=== PATIENT | male | born 1980 | race Caucasian/White ===

== ENCOUNTER 2024-02-11 08:44 | Inpatient (IN) ==
--- NOTE | 2024-02-11 09:04 | Emergency Department Note ---
Impression & Plan Chest pain ED Provider Note NAME: LARRY VELIZ AGE: 43 SEX: M : 1980 ARRIVES VIA: Walk-In INFORMANT: Patient, ED PROVIDER(S): Jesse Ewing DO CHIEF COMPLAINT: Chest pain HPI: The patient is a 43-year-old male who presented to the emergency department after an acute onset of chest pain. The patient noticed right sided chest pain that goes into his back. This began prior to arrival. He states the pain is moderate to severe. He does not have a history of hypertension. He has no family history of aortic dissection as far as he knows. He denies having any abdominal pain. He denies having any difficulty breathing or vomiting. He did not see his family doctor but came directly to the emergency department because of the degree of pain. He has no history of DVT or PE. He has no recent surgery or immobilization. ROS: See above HPI for pertinent positives & negatives. A total of 10 systems reviewed and were otherwise negative. PAST MEDICAL HISTORY: See Below PAST SURGICAL HISTORY: See Below FAMILY HISTORY: See Below SOCIAL HISTORY: See Below HOME MEDICATIONS: See Below ALLERGIES: See Below VITALS: See Below PHYSICAL EXAMINATION: GENERAL: The patient is awake and alert. The patient is very anxious and appears to be uncomfortable. EYES: The conjunctivae are clear. The pupils are round and reactive. EARS, NOSE, MOUTH AND THROAT: The nose is without any evidence of any deformity. NECK: The neck is nontender and supple. RESPIRATORY: Normal respiratory effort is noted there is no evidence of wheezing rhonchi or rales CARDIOVASCULAR: Regular rate and rhythm noted there no murmurs rubs or gallops normal S1 normal S2. GASTROINTESTINAL: The abdomen is soft. Abdomen is nontender. MUSCULOSKELETAL/EXTREMITIES: There is no evidence of gross deformity full range of motion is noted in the hips and shoulders. SKIN: There is no obvious evidence of any rash. There are no petechiae, pallor or cyanosis noted. Pulses are symmetric in both wrist. NEUROLOGIC: Patient is awake alert and oriented x3 MEDICAL DECISION MAKING: The patient is a 43-year-old male who presented to the emergency department for an evaluation of chest pain. The patient described right-sided chest pain that radiated to the right side of his back. The patient was initially found to have an elevated blood pressure. For this reason there was concerned about aortic dissection. The patient was treated with aspirin as well as pain medication in the emergency department. On reevaluation he was feeling much better. The CT of the chest did not show any signs of aortic dissection but did show coronary artery calcifications. For this reason I do feel the patient may be at higher risk for acute coronary syndrome. For this reason I discussed his condition with the on-call [facility] hospitalist group. They have agreed to evaluate the patient in the emergency department for further management and disposition. Triage Nursing notes reviewed. Prior medical records reviewed Vital Signs: reviewed and remarkable for elevated blood pressure. Differential diagnosis: Cardiac ischemia, aortic dissection, pulmonary embolism, pneumothorax, pneumonia, pericarditis, myocarditis, esophageal rupture, GERD, cholecystitis, pancreatitis, musculoskeletal, as well as other pathologies. ER treatment provided: See below Diagnostics interpreted by me: ECG: EKG was obtained in the emergency department. My interpretation is sinus tachycardia at 104 bpm. There is no ectopy. There is no acute ST segment abnormalities noted. No previous tracing was available. Cardiac Monitoring: An order was placed for continuous cardiac monitoring. The monitor shows a rate of 69 bpm with sinus rhythm. Laboratory studies: As stated above and show below. Imaging studies: See below. Radiographic imaging was reviewed by myself Consultation(s): I discussed this case [facility] Past Med/Surg History Problem List Chest pain (Acute) HTN (hypertension) HLD (hyperlipidemia) Chest pain History of wisdom tooth extraction Social History (Updated 02/11/24 @ 11:23 by Kennedy Dawn MD) Smoking Status: Never smoker Hx Alcohol Use: Yes Alcohol type: beer Hx Substance Use: No Preferred Language: Kiswahili Communication Ability: Effective [employer] Operator Required: No Beliefs That Will Affect Care: None Current Living Situation: Spouse Other Information That Helps Us Care for You: Yes Feels Safe at Home: Yes Assistive Devices: Glasses Allergies Allergies Allergy/AdvReac Type Severity Reaction Status Date / Time codeine AdvReac Mild "makes my Verified 02/11/24 10:54 stomach burn tramadol AdvReac Unknown "DOESN'T Unverified 02/11/24 10:[address] IT MAKES ME FEEL" Home Meds Home Medications Medication Instructions Recorded Confirmed Ibuprofen Tab (ADVIL) 200 - 800 mg PO Q4H PRN Pain #0 11/26/15 02/11/24 tabs Results & Data (ED) Vital Signs Vital Signs - 24 hr 02/11/24 08:47 02/11/24 09:00 02/11/24 09:08 Temperature 36.7 C Temperature Source Temporal Artery Scan Pulse Rate 118 H 98 H Pulse Rate [Apical] 93 H Pulse Rate from SpO2 Sensor Respiratory Rate 22 18 Respiratory Effort / Characteristics Non-Labored Spontaneous Non-Labored Spontaneous Respiratory Depth Normal Normal Respiratory Pattern Regular Blood Pressure 200/136 H Blood Pressure [Left Arm] Blood Pressure [Right Arm] 189/123 H Blood Pressure Mean 157 Blood Pressure Mean [Left Arm] Blood Pressure Mean [Right Arm] 145 Blood Pressure Position [Left Arm] Blood Pressure Position [Right Arm] Sitting Pulse Oximetry 96 98 Oxygen Delivery Method Room Air Room Air Sepsis Recent Fever Within 48 Hours No Sepsis New/Unexplained Change in Mental Status No Sepsis Action Taken by Nursing No Action Required 02/11/24 09:09 02/11/24 10:00 02/11/24 10:00 Temperature Temperature Source Pulse Rate 90 Pulse Rate [Apical] 89 Pulse Rate from SpO2 Sensor 90 Respiratory Rate 18 17 Respiratory Effort / Characteristics Non-Labored Spontaneous Respiratory Depth Normal Respiratory Pattern Blood Pressure 160/96 H Blood Pressure [Left Arm] 174/108 H Blood Pressure [Right Arm] Blood Pressure Mean 111 Blood Pressure Mean [Left Arm] 130 Blood Pressure Mean [Right Arm] Blood Pressure Position [Left Arm] Sitting Blood Pressure Position [Right Arm] Pulse Oximetry 97 93 Oxygen Delivery Method Room Air Sepsis Recent Fever Within 48 Hours Sepsis New/Unexplained Change in Mental Status Sepsis Action Taken by Nursing 02/11/24 10:24 02/11/24 10:30 02/11/24 10:30 Temperature Temperature Source Pulse Rate 80 Pulse Rate [Apical] 77 Pulse Rate from SpO2 Sensor 81 Respiratory Rate 14 17 Respiratory Effort / Characteristics Non-Labored Spontaneous Respiratory Depth Normal Respiratory Pattern Blood Pressure 140/93 Blood Pressure [Left Arm] Blood Pressure [Right Arm] 140/93 Blood Pressure Mean 106 Blood Pressure Mean [Left Arm] Blood Pressure Mean [Right Arm] 108 Blood Pressure Position [Left Arm] Sitting Blood Pressure Position [Right Arm] Sitting Pulse Oximetry 93 96 Oxygen Delivery Method Room Air Sepsis Recent Fever Within 48 Hours Sepsis New/Unexplained Change in Mental Status Sepsis Action Taken by [facility] Medications Current Medication List: was personally reviewed by me Laboratory Data Attestation: I reviewed the patient's lab results. 02/11/24 09:03 02/11/24 09:03 Lab Results 02/11/24 02/11/24 Range/Units 09:03 09:05 WBC 6.67 (4.8-10.8) K/ul RBC 5.47 (4.70-6.10) M/uL Hgb 16.3 (14.0-18.0) g/dl POC Hgb 17.0 (14.0-18.0) g/dl Hct 49.0 (42.0-52.0) % POC Hct 50 (42-52) % MCV 89.6 (80.0-100.0) fL MCH 29.8 (25.0-34.0) pg MCHC 33.3 (32.0-36.0) g/dL RDW Std Deviation 40.0 (36.4-46.3) fL RDW Coeff of Lupe 12.1 (11.5-14.5) % Plt Count 251 (130-400) K/uL MPV 11.4 (9.4-12.4) fL Immature Gran % (Auto) 0.9 % Neut % (Auto) 62.8 % Lymph % (Auto) 26.2 % Tripp % (Auto) 8.1 % Eos % (Auto) 1.0 % Baso % (Auto) 1.0 % Neut # (Auto) 4.18 (1.40-6.50) K/uL Lymph # (Auto) 1.75 (1.20-3.40) K/uL Tripp # (Auto) 0.54 (0.11-0.59) K/uL Eos # (Auto) 0.07 (0.00-0.50) K/uL Baso # (Auto) 0.07 (0.00-0.20) K/uL Immature Gran # (Auto) 0.06 (0.01-0.20) K/uL ESR 17 H (0-15) mm/hr POC Sodium 140 (135-144) mmol/L Sodium 140 (136-145) mmol/L POC Potassium 3.9 (3.3-5.0) mmol/L Potassium 3.9 (3.5-5.1) mmol/L POC Chloride 105 (101-112) mmol/L Chloride 104 (98-107) mmol/L Carbon Dioxide 27 (21-32) mmol/L POC Total CO2 25 (24-31) mmol/L Anion Gap 9 (3-11) POC Anion Gap 15.0 L (16-25) mmol/L POC BUN 16 (7-18) mg/dl BUN 16 (6-23) mg/dl Creatinine 1.00 (0.6-1.4) mg/dl POC Creatinine 1.2 (0.6-1.3) mg/dl Est Cr Clr Drug Dosing 96.5 ml/min eGFR 94.59 BUN/Creatinine Ratio 16.0 (10-20) Glucose 104 H (70-99(Fasting)) mg/dl POC Glucose (other) 105 H (70-99) mg/dl Estimat Average Glucose 111 mg/dl Hemoglobin A1c 5.5 (4.5-5.6) % Calcium 10.2 (8.6-10.3) mg/dl POC Ioniz Calcium Jacqueline 1.27 (1.12-1.32) mmol/l Total Bilirubin 0.6 (0.2-1.0) mg/dl AST 28 (13-39) U/L ALT 46 (7-52) U/L Alkaline Phosphatase 75 (34-104) U/L Troponin I High Sens 2.5 (0-20) pg/ml C-Reactive Protein < 0.50 (0-0.5) mg/dl Total Protein 8.0 (6.0-8.3) gm/dl Albumin 5.0 (3.4-5.0) gm/dl Globulin 3.0 (2.5-4.0) gm/dl Albumin/Globulin Ratio 1.7 (0.9-2) Triglycerides 239 H (0-150) mg/dl Cholesterol 302 H (0-200) mg/dl LDL Cholesterol, Calc 195 mg/dl VLDL Cholesterol, Calc 48 H (0-30) mg/dl HDL Cholesterol 59 mg/dl Cholesterol/HDL Ratio 5.1 H (0-5) Lipase 41 (11-82) U/L Administered Medications Folic Acid (Folic Acid 1 Mg Tab) 1 mg PO QAM [facility] Stop: 03/12/24 11:59 Last Admin: 02/11/24 12:51 Dose: 1 mg Documented By: DW Thiamine HCl (Thiamine Hcl 100 Mg Tab) 100 mg PO QAM DIA[facility] Stop: 03/12/24 11:59 Last Admin: 02/11/24 12:51 Dose: 100 mg Documented By: DIOGENES Discontinued Medications Aspirin (Aspirin Chew 324 Mg) 324 mg PO NOW STA Stop: 02/11/24 10:46 Last Admin: 02/11/24 10:47 Dose: 324 mg Documented By: LUIS Ioversol (Optiray 320 125ml) 112 ml IV ONCE ONE Stop: 02/11/24 09:25 Last Admin: 02/11/24 09:25 Dose: 112 ml Documented By: RESHMA Morphine Sulfate (Morphine Sulfate 4 Mg/Ml 1 Ml Carp\\Vial) 4 mg IV NOW STA Stop: 02/11/24 09:01 Last Admin: 02/11/24 09:13 Dose: 4 mg Documented By: LUIS Ondansetron HCl (Ondansetron Inj 2 Mg/Ml 2 Ml Vial) 4 mg IV NOW STA Stop: 02/11/24 09:01 Last Admin: 02/11/24 09:10 Dose: 4 mg Documented By: LUIS Imaging Data Attestation: I personally reviewed and interpreted this imaging study as follows: My Impression: 1 view chest x-ray was obtained in the emergency department. My interpretation is no free air or definite infiltrate, final report below. Radiologist's Impression: Chest X-Ray 02/11/24 08:55 XR chest 1V portable CLINICAL HISTORY: Chest pain, nonspecific TECHNIQUE: Single frontal radiograph of the chest was obtained. Comparison: None available at the time of this dictation. FINDINGS: No lines and tubes are seen. The cardiomediastinal silhouette is normal. The lungs are clear. No evidence of pleural effusion or pneumothorax. IMPRESSION: No acute chest disease. ACT 112: Negative or not required by law. Electronically signed by: Chivo Loera M.D. 02/11/2024 9:25 AM Chest CTA 02/11/24 09:00 CT angio chest dissec wo/w con CT DOSE: 1552.49 mGy.cm HISTORY: 43 years-old Male with CP. Acute chest pain TECHNIQUE: Multiple CTA images of the chest were obtained with and without the intravenous administration of 112 ml Optiray. Coronal and sagittal MIPS were obtained from the axial data set and were submitted for review. All measurements were obtained according to NASCET criteria. A dose lowering technique was utilized adhering to the principles of ALARA. COMPARISON: Chest radiograph of same day, chest CT 11/26/2015 FINDINGS: CTA: Heart is normal in size. No pericardial effusion. Moderate coronary arterial calcifications are greater than expected for patient age. Aberrant course of the right subclavian artery. No thoracic aortic aneurysm or dissection. There is patency of the imaged vessels. No pulmonary emboli identified. No intramural or mediastinal hematoma. CT CHEST: No thyroid nodule or lymphadenopathy. No pneumothorax, pleural effusion or airspace consolidation. There are no suspicious pulmonary nodules or masses. Mild dependent subsegmental bibasilar atelectasis. Central airways are patent. No acute upper abdominal abnormality. Hepatomegaly with hepatic steatosis. Soft tissues are within normal limits. No acute fracture. IMPRESSION: 1. Unremarkable CTA of the chest. No thoracic aortic aneurysm or dissection. 2. Age advanced coronary artery calcifications. 3. No pleural effusion or airspace consolidation. 4. Hepatomegaly with hepatic steatosis. ACT 112: Negative or not required by law. The above report was generated using voice recognition software. It may contain grammatical, syntax or spelling errors. Electronically signed by: Lauri Mata M.D. 02/11/2024 10:10 AM Discharge Plan Visit Data Chief Complaint: Chest Pain Stated Complaint: CHEST PAIN ED Provider: Jesse Ewing Discharge Problem: Chest pain Patient Disposition: Admitted As Inpatient Discharge Instructions Interventions: ED Discharge Assessment Last Done: 02/11/24 11:43 Discharge Problem: Chest pain Qualifiers: Chest pain type: unspecified Qualified Code(s): R07.9 - Chest pain, unspecified
[2024-02-11] MEDS: ONDANSETRON INJ 2 MG/ML 2 ML VIAL IV STA (09:10)
[2024-02-11] MEDS: MoRPHine SULFATE 4 MG/ML 1 ML CARP\\VIAL IV STA (09:13)
[2024-02-11 09:17] LABS: iSTAT Creatinine 1.2 mg/dl (0.6-1.3); iSTAT Ionized Calcium 1.27 mmol/l (1.12-1.32); iSTAT Potassium 3.9 mmol/L (3.3-5.0)
[2024-02-11 09:21] LABS: Basophils # (auto) 0.07 K/uL (0.00-0.20); Eosinophils # (auto) 0.07 K/uL (0.00-0.50); Hemoglobin 16.3 g/dl (14.0-18.0); Immature Granulocytes # (auto) 0.06 K/uL (0.01-0.20); Immature Granulocytes % (auto) 0.9 %; Lymphocytes # (auto) 1.75 K/uL (1.20-3.40); Lymphocytes % (auto) 26.2 %; Mean Corpuscular Hemoglobin 29.8 pg (25.0-34.0); Mean Corpuscular Hgb Conc 33.3 g/dL (32.0-36.0); Mean Corpuscular Volume 89.6 fL (80.0-100.0); Mean Platelet Volume 11.4 fL (9.4-12.4); Monocytes # (auto) 0.54 K/uL (0.11-0.59); Monocytes % (auto) 8.1 %; Neutrophils # (auto) 4.18 K/uL (1.40-6.50); Neutrophils % (auto) 62.8 %; Platelet Count 251 K/uL (130-400); RDW Coefficient of Variation 12.1 % (11.5-14.5); Red Blood Count 5.47 M/uL (4.70-6.10); White Blood Count 6.67 K/ul (4.8-10.8)
[2024-02-11] MEDS: OPTIRAY 320 125ml IV ONE (09:25)
--- NOTE | 2024-02-11 09:27 | XRay Report ---
XR chest 1V portable CLINICAL HISTORY: Chest pain, nonspecific TECHNIQUE: Single frontal radiograph of the chest was obtained. Comparison: None available at the time of this dictation. FINDINGS: No lines and tubes are seen. The cardiomediastinal silhouette is normal. The lungs are clear. No evid ence of pleural effusion or pneumothorax. IMPRESSION: No acute chest disease. ACT 112: Negative or not required by law. Electronically signed by: Chivo Loera M.D. 02/11/2024 9:25 AM
[2024-02-11 09:36] LABS: Alanine Aminotransferase 46 U/L (7-52); Albumin Globulin Ratio 1.7 (0.9-2); Alkaline Phosphatase 75 U/L (34-104); Anion Gap 9 (3-11); Aspartate Aminotransferase 28 U/L (13-39); Bilirubin,Total 0.6 mg/dl (0.2-1.0); Blood Urea Nitrogen 16 mg/dl (6-23); Calcium 10.2 mg/dl (8.6-10.3); Carbon Dioxide 27 mmol/L (21-32); Chloride 104 mmol/L (98-107); Creatinine Clr Calc Pharmacy 96.5 ml/min; Glucose 104 mg/dl (70-99(Fasting)); Lipase 41 U/L (11-82); Potassium 3.9 mmol/L (3.5-5.1); Sodium 140 mmol/L (136-145)
[2024-02-11 09:42] LABS: Troponin I High Sensitivity 2.5 pg/ml (0-20)
--- NOTE | 2024-02-11 10:11 | CT Scan Report ---
CT angio chest dissec wo/w con CT DOSE: 1552.49 mGy.cm HISTORY: 43 years-old Male with CP. Acute chest pain TECHNIQUE: Multiple CTA images of the chest were obtained with and without the intravenous administra tion of 112 ml Optiray. Coronal and sagittal MIPS were obtained from the axial data set and were sub mitted for review. All measurements were obtained according to NASCET criteria. A dose lowering tech nique was utilized adhering to the principles of ALARA. COMPARISON: Chest radiograph of same day, chest CT 11/26/2015 FINDINGS: CTA: Heart is normal in size. No pericardial effusion. Moderate coronary arterial calcifications are great er than expected for patient age. Aberrant course of the right subclavian artery. No thoracic aortic aneurysm or dissection. There is patency of the imaged vessels. No pulmonary emboli identified. No in tramural or mediastinal hematoma. CT CHEST: No thyroid nodule or lymphadenopathy. No pneumothorax, pleural effusion or airspace consolidation. Th ere are no suspicious pulmonary nodules or masses. Mild dependent subsegmental bibasilar atelectasis. Central airways are patent. No acute upper abdominal abnormality. Hepatomegaly with hepatic steatosis. Soft tissues are within no rmal limits. No acute fracture. IMPRESSION: 1. Unremarkable CTA of the chest. No thoracic aortic aneurysm or dissection. 2. Age advanced coronary artery calcifications. 3. No pleural effusion or airspace consolidation. 4. Hepatomegaly with hepatic steatosis. ACT 112: Negative or not required by law. The above report was generated using voice recognition software. It may contain grammatical, syntax o r spelling errors. Electronically signed by: Lauri Mata M.D. 02/11/2024 10:10 AM
[2024-02-11] MEDS: ASPIRIN CHEW 324 MG PO STA (10:47)
--- NOTE | 2024-02-11 10:58 | History & Physical Report ---
Date of Service February 11, 2024 Assessment & Plan (1) Chest pain: (2) HLD (hyperlipidemia): (3) HTN (hypertension): Plan Assessment and plan: Right sided chest painrule out ACS: EKG with no acute changes, initial troponin negative, continue to trend Check lipid panel/A1c, was on statin at one point but discontinued due to side effects Chest x-ray negative, chest CTA negative for dissection/PE Check echo, n.p.o. after midnight for possible stress test in a.m., cardiology consult Hx HLD: Recheck lipid panel, can consider alternatives to statin therapy HTN without prior diagnosis: SBP's in the 200s on arrival, could have been secondary to pain or anxiety IV labetalol as needed for SBP over 160 A total of 60 minutes was spent on chart review/facilitating plan of care/reviewing diagnostic testing/discussion with consultants Full code DVT prophylaxis: Lovenox History of Present Illness Chief Complaint: r sided cp, sob Primary Care Provider: NO PCP The patient is a 43-year-old male with past medical history of HLD, not c urrently on medication and a family history of heart disease who presented to the ED on 02/11/2024 with complaints of right sided chest pain started at 6:30 AM this morning. 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 The right sided chest pain came on suddenly and was sharp and knocked the wind out of him he reports almost falling into the table. He reports the pain started in the front and radiated to the back and it was sharp and stabbing and intermittent. He was given aspirin and morphine which improved his pain. He denies any nausea/vomiting/dizziness with this episode. He does report some shortness of breath that has now resolved. He denies any recent infection or recent fall or injury to the area. He also reports some joint pain he had for years and his ankles feet and knees that he utilizes ibuprofen as needed for at home. Has a family history of his maternal grandparents with heart issues and had a maternal uncle had a heart attack and at 50 years old. His EKG showed normal sinus rhythm with no acute ST or T wave changes. His initial troponin was negative. Blood work was fairly unremarkable He does not smoke and has never smoked and he drinks a beer a day. Denies any history of alcohol withdrawal in the past His chest x-ray was negative for any acute changes Chest CTA showed: 1. Unremarkable CTA of the chest. No thoracic aortic aneurysm or dissection. 2. Age advanced coronary artery calcifications. 3. No pleural effusion or airspace consolidation. 4. Hepatomegaly with hepatic steatosis. The patient will be admitted for ACS rule out. Allergies Allergy/AdvReac Type Severity Reaction Status Date / Time codeine AdvReac Mild "makes my Verified 02/11/24 10:54 stomach burn tramadol AdvReac Unknown "DOESN'T Unverified 02/11/24 10:54 [address] IT MAKES ME FEEL" Home Medications Medication Instructions Recorded Confirmed Type Ibuprofen Tab (ADVIL) 200 - 800 mg PO Q4H PRN Pain #0 11/26/15 02/11/24 History tabs Past Med/Surg History Problem List HTN (hypertension) HLD (hyperlipidemia) Chest pain History of wisdom tooth extraction Social History (Updated 02/11/24 @ 11:23 by Kennedy Dawn MD) Smoking Status: Never smoker Hx Alcohol Use: Yes Alcohol type: beer Hx Substance Use: No Preferred Language: Upper Sorbian Communication Ability: Effective Director Of Sports Performance Required: No Beliefs That Will Affect Care: None Current Living Situation: Spouse Other Information That Helps Us Care for You: Yes Feels Safe at Home: Yes Assistive Devices: Glasses Review of Systems Review of Systems: All systems reviewed & are unremarkable except as noted in HPI & below Physical Exam Constitutional: WD/WN, vitals as above Eyes: PERRL, conjunctivae normal, anicteric sclerae ENMT: external ear and nose normal, oropharynx normal Neck: trachea midline, no thyromegaly Cardiovascular: RRR, no murmur, no edema Chest (Breasts): normal inspection/palpation of breasts Gastrointestinal (Abdomen): normal bowel sounds, soft, nontender, no hepatosplenomegaly Musculoskeletal: no cyanosis or clubbing, extremities motor strength 5/5 Skin: no rashes, warm and dry Neurologic: PERRL, EOMI, accommodation nl, no face palsy, no dysarthria Psychiatric: A+Ox3, euthymic affect Genitourinary: no testicular masses, no penis abnormality Lymphatic: no cervical or axillary lymphadenopathy Results & Data Results & Data Vital Signs (Past 12 Hours) Vital Signs Temp Pulse Pulse Resp BP BP BP 02/11/24 10:30 77 17 140/93 02/11/24 09:09 89 18 174/108 H 02/11/24 09:08 93 H 18 189/123 H 02/11/24 09:00 98 H 02/11/24 08:47 36.7 C 118 H 22 200/136 H Pulse Ox O2 Del Method 02/11/24 10:30 96 Room Air 02/11/24 09:09 97 Room Air 02/11/24 09:08 98 Room Air 02/11/24 09:00 02/11/24 08:47 96 Room Air Diagnostic Findings Laboratory Results WBC 6.67 K/ul (4.8-10.8) 02/11/24 09:03 RBC 5.47 M/uL (4.70-6.10) 02/11/24 09:03 Hgb 16.3 g/dl (14.0-18.0) 02/11/24 09:03 POC Hgb 17.0 g/dl (14.0-18.0) 02/11/24 09:05 Hct 49.0 % (42.0-52.0) 02/11/24 09:03 POC Hct 50 % (42-52) 02/11/24 09:05 MCV 89.6 fL (80.0-100.0) 02/11/24 09:03 MCH 29.8 pg (25.0-34.0) 02/11/24 09:03 MCHC 33.3 g/dL (32.0-36.0) 02/11/24 09:03 RDW Std Deviation 40.0 fL (36.4-46.3) 02/11/24 09:03 RDW Coeff of Lupe 12.1 % (11.5-14.5) 02/11/24 09:03 Plt Count 251 K/uL (130-400) 02/11/24 09:03 MPV 11.4 fL (9.4-12.4) 02/11/24 09:03 Immature Gran % (Auto) 0.9 % 02/11/24 09:03 Neut % (Auto) 62.8 % 02/11/24 09:03 Lymph % (Auto) 26.2 % 02/11/24 09:03 [place] % (Auto) 8.1 % 02/11/24 09:03 Eos % (Auto) 1.0 % 02/11/24 09:03 Baso % (Auto) 1.0 % 02/11/24 09:03 Neut # (Auto) 4.18 K/uL (1.40-6.50) 02/11/24 09:03 Lymph # (Auto) 1.75 K/uL (1.20-3.40) 02/11/24 09:03 [place] # (Auto) 0.54 K/uL (0.11-0.59) 02/11/24 09:03 Eos # (Auto) 0.07 K/uL (0.00-0.50) 02/11/24 09:03 Baso # (Auto) 0.07 K/uL (0.00-0.20) 02/11/24 09:03 Immature Gran # (Auto) 0.06 K/uL (0.01-0.20) 02/11/24 09:03 POC Sodium 140 mmol/L (135-144) 02/11/24 09:05 Sodium 140 mmol/L (136-145) 02/11/24 09:03 POC Potassium 3.9 mmol/L (3.3-5.0) 02/11/24 09:05 Potassium 3.9 mmol/L (3.5-5.1) 02/11/24 09:03 POC Chloride 105 mmol/L (101-112) 02/11/24 09:05 Chloride 104 mmol/L (98-107) 02/11/24 09:03 Carbon Dioxide 27 mmol/L (21-32) 02/11/24 09:03 POC Total CO2 25 mmol/L (24-31) 02/11/24 09:05 Anion Gap 9 (3-11) 02/11/24 09:03 POC Anion Gap 15.0 mmol/L (16-25) L 02/11/24 09:05 POC BUN 16 mg/dl (7-18) 02/11/24 09:05 BUN 16 mg/dl (6-23) 02/11/24 09:03 Creatinine 1.00 mg/dl (0.6-1.4) 02/11/24 09:03 POC Creatinine 1.2 mg/dl (0.6-1.3) 02/11/24 09:05 Est Cr Clr Drug Dosing 96.5 ml/min 02/11/24 09:03 eGFR 94.59 02/11/24 09:03 BUN/Creatinine Ratio 16.0 (10-20) 02/11/24 09:03 Glucose 104 mg/dl (70-99(Fasting)) H 02/11/24 09:03 POC Glucose (other) 105 mg/dl (70-99) H 02/11/24 09:05 Calcium 10.2 mg/dl (8.6-10.3) 02/11/24 09:03 POC Ioniz Calcium Jacqueline 1.27 mmol/l (1.12-1.32) 02/11/24 09:05 Total Bilirubin 0.6 mg/dl (0.2-1.0) 02/11/24 09:03 AST 28 U/L (13-39) 02/11/24 09:03 ALT 46 U/L (7-52) 02/11/24 09:03 Alkaline Phosphatase 75 U/L (34-104) 02/11/24 09:03 Troponin I High Sens 2.5 pg/ml (0-20) 02/11/24 09:03 Total Protein 8.0 gm/dl (6.0-8.3) 02/11/24 09:03 Albumin 5.0 gm/dl (3.4-5.0) 02/11/24 09:03 Globulin 3.0 gm/dl (2.5-4.0) 02/11/24 09:03 Albumin/Globulin Ratio 1.7 (0.9-2) 02/11/24 09:03 Lipase 41 U/L (11-82) 02/11/24 09:03 Impressions Chest X-Ray 02/11/24 08:55 XR chest 1V portable CLINICAL HISTORY: Chest pain, nonspecific TECHNIQUE: Single frontal radiograph of the chest was obtained. Comparison: None available at the time of this dictation. FINDINGS: No lines and tubes are seen. The cardiomediastinal silhouette is normal. The lungs are clear. No evidence of pleural effusion or pneumothorax. IMPRESSION: No acute chest disease. ACT 112: Negative or not required by law. Electronically signed by: Chivo Loera M.D. 02/11/2024 9:25 AM Chest CTA 02/11/24 09:00 CT angio chest dissec wo/w con CT DOSE: 1552.49 mGy.cm HISTORY: 43 years-old Male with CP. Acute chest pain TECHNIQUE: Multiple CTA images of the chest were obtained with and without the intravenous administration of 112 ml Optiray. Coronal and sagittal MIPS were obtained from the axial data set and were submitted for review. All measurements were obtained according to NASCET criteria. A dose lowering technique was utilized adhering to the principles of ALARA. COMPARISON: Chest radiograph of same day, chest CT 11/26/2015 FINDINGS: CTA: Heart is normal in size. No pericardial effusion. Moderate coronary arterial calcifications are greater than expected for patient age. Aberrant course of the right subclavian artery. No thoracic aortic aneurysm or dissection. There is patency of the imaged vessels. No pulmonary emboli identified. No intramural or mediastinal hematoma. CT CHEST: No thyroid nodule or lymphadenopathy. No pneumothorax, pleural effusion or airspace consolidation. There are no suspicious pulmonary nodules or masses. Mild dependent subsegmental bibasilar atelectasis. Central airways are patent. No acute upper abdominal abnormality. Hepatomegaly with hepatic steatosis. Soft tissues are within normal limits. No acute fracture. IMPRESSION: 1. Unremarkable CTA of the chest. No thoracic aortic aneurysm or dissection. 2. Age advanced coronary artery calcifications. 3. No pleural effusion or airspace consolidation. 4. Hepatomegaly with hepatic steatosis. ACT 112: Negative or not required by law. The above report was generated using voice recognition software. It may contain grammatical, syntax or spelling errors. Electronically signed by: Lauri Mata M.D. 02/11/2024 10:10 AM Supervising Physician Co-Signing Physician Notes Patient is a 42-year-old male with history of hyperlipidemia (not on meds due to statin intolerance) , alcohol use disorder (drinks 1-2 beers per day ) and no other significant past medical history presents with history of sudden onset of right-sided chest pain radiating to the back with started this morning associated with shortness of breath. He describes chest pain to be sharp, right-sided, increases with deep breath which has been intermittent on his en route to the hospital. He denies any recent infections, trauma, similar chest pain in the past. Chest pain improved with aspirin and morphine given in ED. Please review HPI for complete details of presentation. I personally reviewed blood work imaging studies and EKG. EKG showed no signs of acute ischemia. Initial troponin negative. CTA showed no signs of PE, dissection, consolidation but showed findings suggestive of advanced coronary artery calcifications. Physical Exam: Vitals signs as noted above General Appearance:Moderately built and nourished, no apparent distress Head: normocephalic, Atraumatic Eyes: normal inspection, EOMI Neck: supple, Trachea midline Respiratory/Chest: Normal breath sounds, CTA, No accessory muscle use Cardiovascular: S1, S2, No murmur Abdomen/GI:Soft, Non tender, Bowel sounds present Extremities/Musculoskeletal:normal inspection, no edema Neurologic/Psych:AAOX3, grossly no focal neurological deficits Skin: normal color, warm Chest pain rule out ACS Hypertensive urgency Hyperlipidemia--not on medications due to statin intolerance Hepatic Steatosis Alcohol use disorder Will check resting echo, trend troponins, repeat EKG and keep him n.p.o. after midnight for possible stress test tomorrow Cardiology consulted IV labetalol as needed for now. If blood pressure remains persistently elevated, will start antihypertensives Thiamine, folic acid, monitor for withdrawal Check lipid panel, A1c. Will start on aspirin, nitroglycerin as needed I personally interviewed and examined at bedside. Patient's care is coordinated with Roshan JOSEPH. I have reviewed the advanced practitioner's documentation, and I agree with plan of care. Please refer to the documentation above for details of patient's presentation and for discussion of other issues. I spent a total [id number] coordinating, documenting, and providing care for this patient excluding time spent in the performance of separately billed services.
[2024-02-11 11:49] LABS: C Reactive Protein < 0.50 mg/dl (0-0.5); Chol HDL Ratio 5.1 (0-5); Cholesterol 302 mg/dl (0-200); HDL Cholesterol 59 mg/dl; LDL Cholesterol Calculated 195 mg/dl; Triglycerides 239 mg/dl (0-150); VLDL Cholesterol 48 mg/dl (0-30)
[2024-02-11 11:50] LABS: Estimated Average Glucose 111 mg/dl; Hemoglobin A1C 5.5 % (4.5-5.6)
--- NOTE | 2024-02-11 11:52 | Cardiology Consultation ---
Date of Consultation February 11, 2024 Assessment & Plan (1) Chest pain: (2) HLD (hyperlipidemia): (3) HTN (hypertension): (4) Coronary artery calcification: Plan Patient admitted with sudden onset right sided chest pain radiating to his right shoulder blade with mild pleuritic chest pain. HS troponin negative x2 since admission. EKG demonstrating sinus without ischemic changes. Echo with preserved EF, no wall motion abnormalities Chest CTA without evidence of dissection or PE. Incidental finding of coronary artery calcifications noted. Lipase unremarkable. ESR just minimally elevated. Normal CRP. Recommend ASA 81 mg daily He has long history of hyperlipidemia with prior statin intolerance to atorvastatin per patient. Possible intolerance of Crestor 10 mg, but this is uncertain. Patient agreeable to retrying Crestor 10 mg daily. His BP has been variable since admission. No history of hypertension. No LVH on echo. Monitor. consider adding SEEMA/ARB if BP does not trend downwards. His chest pain is atypical for angina, however he has cardiac risk factors including hyperlipidemia and significant coronary artery calcification on his recent chest CT. Recommend ischemic work up with exercise stress echo tomorrow. Case discussed with Dr. Oscar I spent a total of 50 minutes on the date of service in preparation, delivery, and documentation of the care provided to this patient, excluding any time spent in the performance of separately billed services. Tatyana Pino PA-C Department of Cardiology, [facility] This chart was completed in part utilizing Speech Voice Recognition Software. Grammatical errors, random word insertions, pronoun errors, and incomplete sentences are an occasional consequence of this system due to software limitations, ambient noise, and hardware issues. Any formal questions or concerns about the content, text, or information contained within the body of this dictation should be directly addressed to the provider for clarification. Supervising Physician Co-Signing Physician Notes Attending attestation: Case reviewed with the advanced practitioner. I have personally performed a history and physical examination on the patient. I have reviewed the advanced practitioner's documentation on the date of service referenced in note, and I agree with, and take responsibility for the plan of care. I spent a total of 20 minutes coordinating, documenting, and providing care for this patient excluding time spent in the performance of separately billed services or time spent by another provider. Joel Oscar, DO History of Present Illness Reason for Consultation: Chest pain Requesting Physician: [facility] Hospitalist Attending Physician: Dr. 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 He describes the pain as sudden/sharp, right sided of his chest, radiating to his right shoulder blade. Symptoms nearly "took him to his knees". He told his co workers who encouraged him to come to the ER for evaluation. upon arrival to the ER, EKG demonstrated NSR without ischemic changes. HS troponin negative. BP was elevated. Patient reports his BP is typically well controlled. CRP was normal. Lipase was normal. He denies history of cardiovascular problems/issues. No prior cardiac work up. He has a history of hyperlipidemia. He was on atorvastatin in the past, but this was discontinued due to myalgias. At time of consult, patient resting in bed comfortably. Still mild right sided chest pain, worse with deep inspiration. No fever, cough, chills. No recent exertional chest pain or dyspnea. No headache or vision changes. He reports mild edema at times, particularly at the end of the day. No current edema. No orthopnea, PND. BP was elevated on arrival, treated with IV labetalol. Allergies Allergy/AdvReac Type Severity Reaction Status Date / Time codeine AdvReac Mild "makes my Verified 02/11/24 10:54 stomach burn tramadol AdvReac Unknown "DOESN'T Unverified 02/11/24 10:54 [address] IT MAKES ME FEEL" Home Medications Medication Instructions Recorded Confirmed Type Ibuprofen Tab (ADVIL) 200 - 800 mg PO Q4H PRN Pain #0 11/26/15 02/11/24 History tabs Patient History Social History (Updated 02/11/24 @ 11:23 by Kennedy Dawn MD) Smoking Status: Never smoker Hx Alcohol Use: Yes Alcohol type: beer Hx Substance Use: No Preferred Language: Armenian Communication Ability: Effective [employer] Processing Supervisor Required: No Beliefs That Will Affect Care: None Current Living Situation: Spouse Other Information That Helps Us Care for You: Yes Feels Safe at Home: Yes Assistive Devices: Glasses Review of Systems Review of Systems: All systems reviewed & are unremarkable except as noted in HPI & below Physical Exam Constitutional: WD/WN, vitals as above well developed; no acute distress Neck: trachea midline, no thyromegaly Respiratory: normal respiratory effort Auscultation: lungs clear to auscultation bilaterally Cardiovascular: Rate/Rhythm: regular rate and regular rhythm Heart Sounds: normal S1 and normal S2; no murmur Gastrointestinal (Abdomen): normal bowel sounds, soft, nontender, no hepatosplenomegaly Neurologic: PERRL, EOMI, accommodation nl, no face palsy, no dysarthria Psychiatric: A+Ox3, euthymic affect Results & Data Vital Signs (Past 12 Hours) Vital Signs Temp Pulse Pulse Resp BP BP BP 02/11/24 11:33 75 15 02/11/24 11:30 135/94 02/11/24 11:18 78 18 02/11/24 11:09 83 20 02/11/24 10:30 140/93 02/11/24 10:30 77 17 140/93 02/11/24 10:24 80 14 02/11/24 10:00 90 17 02/11/24 10:00 160/96 H 02/11/24 09:09 89 18 174/108 H 02/11/24 09:08 93 H 18 189/123 H 02/11/24 09:00 98 H 02/11/24 08:47 36.7 C 118 H 22 200/136 H Pulse Ox O2 Del Method 02/11/24 11:33 96 02/11/24 11:30 02/11/24 11:18 95 02/11/24 11:09 96 02/11/24 10:30 02/11/24 10:30 96 Room Air 02/11/24 10:24 93 02/11/24 10:00 93 02/11/24 10:00 02/11/24 09:09 97 Room Air 02/11/24 09:08 98 Room Air 02/11/24 09:00 02/11/24 08:47 96 Room Air Laboratory Results Cardiac Enzymes 02/11/24 02/11/24 Range/Units 09:03 11:02 AST 28 (13-39) U/L Troponin I High Sens 2.5 (0-20) pg/ml B-Natriuretic Peptide 15 (0-100) pg/ml Coagulation 02/11/24 Range/Units 11:02 B-Natriuretic Peptide 15 (0-100) pg/ml CBC 02/11/24 Range/Units 09:03 WBC 6.67 (4.8-10.8) K/ul RBC 5.47 (4.70-6.10) M/uL Hgb 16.3 (14.0-18.0) g/dl Hct 49.0 (42.0-52.0) % Plt Count 251 (130-400) K/uL Neut # (Auto) 4.18 (1.40-6.50) K/uL Lymph # (Auto) 1.75 (1.20-3.40) K/uL [place] # (Auto) 0.54 (0.11-0.59) K/uL Eos # (Auto) 0.07 (0.00-0.50) K/uL Baso # (Auto) 0.07 (0.00-0.20) K/uL Comprehensive Metabolic Panel 02/11/24 Range/Units 09:03 Sodium 140 (136-145) mmol/L Potassium 3.9 (3.5-5.1) mmol/L Chloride 104 (98-107) mmol/L Carbon Dioxide 27 (21-32) mmol/L BUN 16 (6-23) mg/dl Creatinine 1.00 (0.6-1.4) mg/dl Glucose 104 H (70-99(Fasting)) mg/dl Calcium 10.2 (8.6-10.3) mg/dl AST 28 (13-39) U/L ALT 46 (7-52) U/L Alkaline Phosphatase 75 (34-104) U/L Total Protein 8.0 (6.0-8.3) gm/dl Albumin 5.0 (3.4-5.0) gm/dl Intake and Output 02/10/24 02/11/24 02/11/24 22:59 06:59 14:59 Other: Weight 87.2 kg Weight Measurement Method Chair Scale Patient Weight 02/12/24 06:59 Weight 87.2 kg Diagnostic Findings Telemetry reviewed: NSR, no arrhythmias EKG on arrival reviewed: Sinus tachycardia, no ischemic changes Echo report reviewed dated 02/11/24; Normal LV wall thickness No regional wall motion abnormalities Normal LV systolic function with EF 55-60% RV is normal in size and function LV diastolic funciton is normal Chest X-Ray 02/11/24 08:55 XR chest 1V portable CLINICAL HISTORY: Chest pain, nonspecific TECHNIQUE: Single frontal radiograph of the chest was obtained. Comparison: None available at the time of this dictation. FINDINGS: No lines and tubes are seen. The cardiomediastinal silhouette is normal. The lungs are clear. No evidence of pleural effusion or pneumothorax. IMPRESSION: No acute chest disease. ACT 112: Negative or not required by law. Chest CTA 02/11/24 09:00 CT angio chest dissec wo/w con CT DOSE: 1552.49 mGy.cm HISTORY: 43 years-old Male with CP. Acute chest pain TECHNIQUE: Multiple CTA images of the chest were obtained with and without the intravenous administration of 112 ml Optiray. Coronal and sagittal MIPS were obtained from the axial data set and were submitted for review. All measurements were obtained according to NASCET criteria. A dose lowering technique was utilized adhering to the principles of ALARA. COMPARISON: Chest radiograph of same day, chest CT 11/26/2015 FINDINGS: CTA: Heart is normal in size. No pericardial effusion. Moderate coronary arterial calcifications are greater than expected for patient age. Aberrant course of the right subclavian artery. No thoracic aortic aneurysm or dissection. There is patency of the imaged vessels. No pulmonary emboli identified. No intramural or mediastinal hematoma. CT CHEST: No thyroid nodule or lymphadenopathy. No pneumothorax, pleural effusion or airspace consolidation. There are no suspicious pulmonary nodules or masses. Mild dependent subsegmental bibasilar atelectasis. Central airways are patent. No acute upper abdominal abnormality. Hepatomegaly with hepatic steatosis. Soft tissues are within normal limits. No acute fracture. IMPRESSION: 1. Unremarkable CTA of the chest. No thoracic aortic aneurysm or dissection. 2. Age advanced coronary artery calcifications. 3. No pleural effusion or airspace consolidation. 4. Hepatomegaly with hepatic steatosis. ACT 112: Negative or not required by law. The above report was generated using voice recognition software. It may contain grammatical, syntax or spelling errors. Electronically signed by: Lauri Mata M.D. 02/11/2024 10:10 AM Medications Administered Current Inpatient Medications Acetaminophen (Acetaminophen 325 Mg Tab) 650 mg PO Q4H PRN PRN Reason: Pain or Fever Stop: 03/12/24 11:59 Aspirin (Aspirin 81 Mg Ectab) 81 mg PO [facility] Stop: 03/13/24 08:59 Enoxaparin Sodium (Enoxaparin Inj 40 Mg/0.4 Ml Syr) 40 mg SQ [facility] Stop: 03/13/24 08:59 Folic Acid (Folic Acid 1 Mg Tab) [facility] [place] Stop: 03/12/24 11:59 Last Admin: 02/11/24 12:51 Dose: 1 mg Labetalol HCl (Labetalol Hcl Iv 5 Mg/Ml 20ml) 10 mg IV Q6H PRN PRN Reason: Hypertension SBP>180orDBP>100 Stop: 03/12/24 11:59 Morphine Sulfate (Morphine Sulfate 2 Mg/Ml Carp) 2 mg IV Q8H PRN PRN Reason: Mod-Sev Pain (Scale 4-10) Stop: 02/25/24 11:59 Nitroglycerin (Nitroglycerin Sl 0.4 Mg/Tab Tab) 0.4 mg SL Q5M PRN PRN Reason: Chest Pain Stop: 03/12/24 11:59 Ondansetron HCl (Ondansetron Inj 2 Mg/Ml 2 Ml Vial) 4 mg IV Q6H PRN PRN Reason: Nausea And Vomiting Stop: 03/12/24 11:59 Thiamine HCl (Thiamine Hcl 100 Mg Tab) 100 mg PO [facility] Stop: 03/12/24 11:59 Last Admin: 02/11/24 12:51 Dose: 100 mg (1) Chest pain Chest pain type: unspecified Qualified Code(s): R07.9 - Chest pain, unspecified (2) HLD (hyperlipidemia) Hyperlipidemia type: unspecified Qualified Code(s): E78.5 - Hyperlipidemia, unspecified (3) HTN (hypertension) Hypertension type: unspecified Qualified Code(s): I10 - Essential (primary) hypertension
[2024-02-11] MEDS ORDERED: LABETALOL HCL IV 5 MG/ML 20ML IV PRN (12:00)
[2024-02-11] MEDS ORDERED: MoRPHine SULFATE 2 MG/ML CARP IV PRN (12:00)
[2024-02-11] MEDS ORDERED: ONDANSETRON INJ 2 MG/ML 2 ML VIAL IV PRN (12:00)
[2024-02-11] MEDS ORDERED: NITROGLYCERIN SL 0.4 MG/TAB TAB SL PRN (12:00)
[2024-02-11] MEDS: FOLIC ACID 1 MG TAB PO SCH (12:51)
[2024-02-11] MEDS: THIAMINE HCL 100 MG TAB PO SCH (12:51)
[2024-02-11] MEDS: ROSUVASTATIN CALCIUM 10 MG TAB PO SCH (20:48)
[2024-02-11] MEDS: ACETAMINOPHEN 325 MG TAB PO PRN (20:50)
[2024-02-11] MEDS: DICLOFENAC SOD 1% GEL 100 GM TUBE EXT PRN (21:46)
[2024-02-12 03:41] VITALS: RESP 16; O2SAT 97
[2024-02-12 06:28] LABS: Basophils # (auto) 0.04 K/uL (0.00-0.20); Basophils % (auto) 0.6 %; Eosinophils # (auto) 0.13 K/uL (0.00-0.50); Eosinophils % (auto) 2.1 %; Hematocrit (blood only) 48.8 % (42.0-52.0); Hemoglobin 15.9 g/dl (14.0-18.0); Immature Granulocytes # (auto) 0.04 K/uL (0.01-0.20); Immature Granulocytes % (auto) 0.6 %; Lymphocytes % (auto) 28.4 %; Mean Corpuscular Hemoglobin 29.4 pg (25.0-34.0); Mean Corpuscular Hgb Conc 32.6 g/dL (32.0-36.0); Mean Corpuscular Volume 90.4 fL (80.0-100.0); Mean Platelet Volume 11.2 fL (9.4-12.4); Monocytes # (auto) 0.55 K/uL (0.11-0.59); Monocytes % (auto) 8.7 %; Neutrophils # (auto) 3.77 K/uL (1.40-6.50); Neutrophils % (auto) 59.6 %; Platelet Count 216 K/uL (130-400); RDW Coefficient of Variation 12.3 % (11.5-14.5); RDW Standard Deviation 40.5 fL (36.4-46.3); White Blood Count 6.33 K/ul (4.8-10.8)
[2024-02-12 06:47] LABS: Albumin Globulin Ratio 1.5 (0.9-2); Albumin Level 4.3 gm/dl (3.4-5.0); BUN Creatinine Ratio 14.5 (10-20); Bilirubin,Total 0.5 mg/dl (0.2-1.0); Calcium 9.5 mg/dl (8.6-10.3); Creatinine Clr Calc Pharmacy 86.4 ml/min; Globulin 2.8 gm/dl (2.5-4.0); Magnesium 2.1 mg/dl (1.7-2.4); Potassium 4.2 mmol/L (3.5-5.1); Total Protein 7.1 gm/dl (6.0-8.3)
[2024-02-12 07:23] VITALS: TEMP 97.5
[2024-02-12] MEDS: ASPIRIN 81 MG ECTAB PO SCH (08:42)
[2024-02-12] MEDS: ENOXAPARIN INJ 40 MG/0.4 ML SYR SQ SCH (08:42)
--- NOTE | 2024-02-12 12:36 | Electrocardiogram Report ---
Test Reason : Blood Pressure : */* mmHG Vent. Rate : 104 BPM Atrial Rate : 104 BPM P-R Int : 142 ms QRS Dur : 80 ms QT Int : 336 ms P-R-T Axes : 56 26 47 degrees QTcB Int : 441 ms Sinus tachycardia Otherwise normal ECG No previous ECGs available Confirmed by Geovanny Benitez ([id number]) on 02/12/2024 12:35:59 PM Referred By: REFERRED SELF Confirmed By: Geovanny Benitez
--- NOTE | 2024-02-12 12:46 | Electrocardiogram Report ---
Test Reason : Blood Pressure : */* mmHG Vent. Rate : 86 BPM Atrial Rate : 86 BPM P-R Int : 136 ms QRS Dur : 78 ms QT Int : 360 ms P-R-T Axes : 43 32 29 degrees QTcB Int : 430 ms Normal sinus rhythm Normal ECG When compared with ECG of 11-Feb-2024 08:57, No significant change was found Confirmed by Geovanny Benitez ([id number]) on 02/12/2024 12:46:34 PM Referred By: REFERRED SELF Confirmed By: Geovanny Benitez
--- NOTE | 2024-02-12 13:08 | Cardiology Progress Note ---
Date of Service February 12, 2024 Assessment & Plan (1) Chest pain: (2) HLD (hyperlipidemia): (3) HTN (hypertension): (4) Coronary artery calcification: Plan: High sensitive troponin negative x 3. The exercise stress echocardiogram is negative for ischemia having achieved a high workload. An equivocal transient hypotensive response to exercise was observed. No symptoms suggestive of angina reproduced with exercise. The patient described transient pain in the posterior aspect of his neck that seem to be characteristic of musculoskeletal pain rather than angina. Blood pressure has been elevated on initial presentation but has improved overnight. Would recommend acetaminophen for what appears to be musculoskeletal right scapular pain. Could consider low-dose of a nonsteroidal anti-inflammatory such as ibuprofen, lowest dose for shortest course possible for relief. I do not think he should be taking NSAIDs on a regular basis given his underlying cardiac risk factors. He did state that the Voltaren topical gel appeared to help last evening. LDL cholesterol extremely high at 195 mg/dL with premature coronary artery calcification. Start rosuvastatin 10 mg daily. Recommend cardiology follow-up for ongoing cardiac risk factor optimization, treatment of lipids. If he does not tolerate rosuvastatin, will consider alternatives. Stable from a cardiology perspective for discharge. Plan Admission and Anticipated Discharge Date Admission Date: February 11, 2024 Subjective Right great something patient seen prior to, during, after stress echocardiogram. Stress echocardiogram was negative for ischemia. Patient had no additional chest discomfort overnight last night. His discomfort in the right scapula has improved. Physical Exam Constitutional: WD/WN, vitals as above well developed; no acute distress Neck: trachea midline, no thyromegaly Respiratory: normal respiratory effort Auscultation: lungs clear to auscultation bilaterally Cardiovascular: Rate/Rhythm: regular rate and regular rhythm Heart Sounds: normal S1 and normal S2; no murmur Gastrointestinal (Abdomen): normal bowel sounds, soft, nontender, no hepatosplenomegaly Neurologic: PERRL, EOMI, accommodation nl, no face palsy, no dysarthria Psychiatric: A+Ox3, euthymic affect Results & Data Vital Signs (Past 12 Hours) Vital Signs Temp Pulse Pulse Resp BP Pulse Ox O2 Del Method 02/12/24 09:27 69 02/12/24 07:22 36.4 C L 74 16 136/89 97 Room Air 02/12/24 03:41 36.9 C 65 16 137/82 97 Room Air Laboratory Results Cardiac Enzymes 12/11/24 12/12/24 Range/Units 17:55 06:03 AST 24 (13-39) U/L Troponin I High Sens 2.5 (0-20) pg/ml CBC 02/12/24 Range/Units 06:03 WBC 6.33 (4.8-10.8) K/ul RBC 5.40 (4.70-6.10) M/uL Hgb 15.9 (14.0-18.0) g/dl Hct 48.8 (42.0-52.0) % Plt Count 216 (130-400) K/uL Neut # (Auto) 3.77 (1.40-6.50) K/uL Lymph # (Auto) 1.80 (1.20-3.40) K/uL [place] # (Auto) 0.55 (0.11-0.59) K/uL Eos # (Auto) 0.13 (0.00-0.50) K/uL Baso # (Auto) 0.04 (0.00-0.20) K/uL Comprehensive Metabolic Panel 02/12/24 Range/Units 06:03 Sodium 140 (136-145) mmol/L Potassium 4.2 (3.5-5.1) mmol/L Chloride 105 (98-107) mmol/L Carbon Dioxide 30 (21-32) mmol/L BUN 16 (6-23) mg/dl Creatinine 1.10 (0.6-1.4) mg/dl Glucose 106 H (70-99(Fasting)) mg/dl Calcium 9.5 (8.6-10.3) mg/dl AST 24 (13-39) U/L ALT 38 (7-52) U/L Alkaline Phosphatase 67 (34-104) U/L Total Protein 7.1 (6.0-8.3) gm/dl Albumin 4.3 (3.4-5.0) gm/dl Intake and Output 02/11/24 02/12/24 02/12/24 22:59 06:59 14:59 Intake Total 120 / 360 Balance 120 / 360 Intake: Oral 120 / 360 Other: # Unmeasured Voids 1 1 Weight 84.3 kg Weight Measurement Method Built in [facility] (1) Chest pain Chest pain type: unspecified Qualified Code(s): R07.9 - Chest pain, unspecified (2) HLD (hyperlipidemia) Hyperlipidemia type: unspecified Qualified Code(s): E78.5 - Hyperlipidemia, unspecified (3) HTN (hypertension) Hypertension type: unspecified Qualified Code(s): I10 - Essential (primary) hypertension
--- NOTE | 2024-02-12 13:23 | Discharge Summary ---
Discharge Summary Date of Service February 12, 2024 Principal Dx & Hospital Course #1 = Principal Diagnosis (1) Spasm of skeletal muscle of thorax: (2) Musculoskeletal chest pain: (3) HLD (hyperlipidemia): (4) HTN (hypertension): Notes For Next Care Provider Recommend continue to follow with cardiology for restratification and management of coronary artery disease Medication Changes From Visit Crestor for dyslipidemia Flexeril as needed for muscle spasms Admission HPI Per Admitting Provider The patient is a 43-year-old male with past medical history of HLD, not currently on medication and a family history of heart disease who presented to the ED on 02/11/2024 with complaints of right sided chest pain started at 6:30 AM this morning. 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 The right sided chest pain came on suddenly and was sharp and knocked the wind out of him he reports almost falling into the table. He reports the pain started in the front and radiated to the back and it was sharp and stabbing and intermittent. He was given aspirin and morphine which improved his pain. He denies any nausea/vomiting/dizziness with this episode. He does report some shortness of breath that has now resolved. He denies any recent infection or recent fall or injury to the area. He also reports some joint pain he had for years and his ankles feet and knees that he utilizes ibuprofen as needed for at home. Has a family history of his maternal grandparents with heart issues and had a maternal uncle had a heart attack and at 50 years old. His EKG showed normal sinus rhythm with no acute ST or T wave changes. His initial troponin was negative. Blood work was fairly unremarkable He does not smoke and has never smoked and he drinks a beer a day. Denies any history of alcohol withdrawal in the past His chest x-ray was negative for any acute changes Chest CTA showed: 1. Unremarkable CTA of the chest. No thoracic aortic aneurysm or dissection. 2. Age advanced coronary artery calcifications. 3. No pleural effusion or airspace consolidation. 4. Hepatomegaly with hepatic steatosis. The patient will be admitted for ACS rule out. Admission Exam Per Admitting Provider See H&P Discharge Exam Constitutional: Alert HEENT: Mucous membranes moist. Lungs: Clear to auscultation, decreased, no wheezes rales or rhonchi CV: S1-S2, regular Abdomen: Soft, nontender, nondistended Extremities: No significant edema Neuro: No focal deficits Musculoskeletal: Significant muscle tenderness, ropiness, bogginess and spasms of the trapezius muscles bilaterally and rhomboid musculature on the right Psych: Cooperative, normal mood Updated Medication List Medication Instructions Recorded Confirmed Type Ibuprofen Tab (ADVIL) 200 - 800 mg PO Q4H PRN Pain #0 11/26/15 02/11/24 History tabs cyclobenzaprine 10 mg tablet 10 mg PO TID PRN muscle spasm #30 02/12/24 Rx tabs rosuvastatin 10 mg tablet 10 mg PO QPM #30 tabs 02/12/24 Rx Hospital Stay Data Consultations 02/11/24 10:52 ED Decision to Admit Stat 02/11/24 12:00 Consult Cardiology Routine Diagnostic Imagining Performed 02/11/24 09:00 CT angio chest dissec wo/w con Stat Reviewed imaging, laboratory and diagnostic studies. Pertinent findings as below. Exercise stress echo negative for signs of ischemia Troponins negative times all sets Echocardiogram shows normal ejection fraction 55% with no significant wall motion abnormalities CT of the chest did show some coronary calcifications Triglycerides 239 Cholesterol 302 LDL 195 HDL 59 Pending Results Patient Have Any Pending Studies at Discharge: No Discharge Instructions Given to Patient (Per Discharging Provider) Follow-up with cardiology to continue to evaluate your cardiac risks Total Time Total Time Spent Total Time Spent (In Minutes): 26
[2024-02-12 14:27] VITALS: BP 127/82; PULSE 74
[2024-02-12] MEDS: IBUPROFEN 200 MG TAB PO STA (15:35)
== END 2024-02-12 16:29 | disposition home or self-care (01) | DRG 552 ==
LOC: ED 08:44 → 4W 10:55 → SUATTDRO 10:55 → 4W 11:43